=== PATIENT | male | born 1985 | race Caucasian/White ===

== ENCOUNTER 2016-09-05 10:15 | Emergency (ER) | payer SELFPAY ==
[~2016-09-05] VITALS: Ht 177.8 cm; Wt 100.0 kg
[2016-09-05 10:17] VITALS: BP 140/80; PULSE 87; RESP 24; TEMP 98.1; O2SAT 100
--- NOTE | 2016-09-05 10:43 | PD ---
HPI . Anxiety Chief Complaint: Anxiety Time Seen by Provider: 10:32 Travel History International Travel<30 days: No Contact w/Intl Traveler<30days: No Traveled to known affect area: No History of Present Illness HPI This patient presents with the chief complaint of stress and anxiety. He states that he has mental issues dating back to when he was a kid. He states that he used to be on multiple medications but worsening himself off of the medications by the time he was a young teenager. He states that he's been able to cope pretty well until recently. He states that his life has a lot of stress and that he is having a more and more difficult time coping with distress. He states that he has some anger issues. He states that he sometimes has trouble controlling his anger. He states that he has never hurt anyone and does not have any loss of hurting himself or anyone else. He states that he was at work today when he had an anxiety attack that was so severe that it caused carpopedal spasm followed by syncope. EMS was called and he was brought to the hospital. EMS was able to "talk him down" he is now much improved. The patient states that he is not at all interested in [place] [facility] [place] He is, however, interested in being referred to psychiatry as an outpatient. The patient denies any significant alcohol or drug abuse. He states that he occasionally drinks and occasionally uses cocaine but not regularly. PFSH Past Medical History Hx Anticoagulant Therapy: No Anxiety: Yes Depression: Yes Cardiovascular Problems: No Chemotherapy: No Cerebrovascular Accident: No Diabetes: No Diminished Hearing: No Inguinal Hernia: Yes (right) Respiratory: No Immunizations Current: Yes Tetanus Vaccination: < 5 Years Influenza Vaccination: Yes Social History Alcohol Use: Yes (beer, rare) Tobacco Use: Yes (1+ PPD) Substance Use: No Allergies-Medications (Allergen,Severity, Reaction): Uncoded Allergies: unknown antibiotic (Adverse Reaction, Unknown, 09/05/16) Reported Meds & Prescriptions Reported Meds & Active Scripts Active No Active Prescriptions or Reported Medications Review of Systems Except as stated in HPI: all other systems reviewed are Neg Psychiatric: Positive: Anxiety, No: Suicidal Ideations, Substance Abuse, Homicidal Ideation Physical Exam Narrative GENERAL: Awake and alert and in no acute distress. SKIN: Warm and dry. HEAD: Atraumatic. Normocephalic. EYES: Pupils equal and round. NECK: Trachea midline. CARDIOVASCULAR: Regular rate and rhythm. RESPIRATORY: No accessory muscle use. MUSCULOSKELETAL: No obvious deformities. No edema. NEUROLOGICAL: Awake and alert. No obvious cranial nerve deficits. Motor grossly within normal limits. Normal speech. PSYCHIATRIC: Appropriate mood and affect; insight and judgment normal. He makes good eye contact with the examiner. He is lucid. He does not seem to be responding to any internal stimuli. Data Data Last Documented VS Vital Signs Date Time Temp Pulse Resp B/P Pulse Ox O2 Delivery O2 Flow Rate FiO2 09/05/16 10:19 80 16 09/05/16 10:17 98.1 140/80 100 Orders Lorazepam (Ativan) (09/05/16 10:45) Haloperidol Inj (Haldol Inj) (09/05/16 11:15) Diphenhydramine Inj (Benadryl Inj) (09/05/16 11:15) MDM Medical Decision Making Medical Screen Exam Complete: Yes Emergency Medical Condition: Yes Differential Diagnosis My differential diagnosis anxiety includes but is not limited to generalized anxiety disorder, depression, psychoses, drug abuse, alcohol abuse Narrative Course Patient presents for anger management issues, stress and anxiety. He is not homicidal or suicidal. He is not psychotic. He was given a dose of Ativan here and will be referred to [facility] for outpatient treatment. Diagnosis Primary Impression: Anxiety hyperventilation Referrals: [facility] Patient Instructions: General Instructions, Stress (DC) Scripts No Active Prescriptions or Reported Meds Disposition: 01 DISCHARGE HOME Condition: Stable Nisha Cerda MD Sep 05, 2016 10:43
[2016-09-05] MEDS ORDERED: LORazepam 2 MG TAB PO ONE (10:45)
[2016-09-05] MEDS ORDERED: HALOPERIDOL LACTATE 5 MG/ML AMP IM ONE (11:15)
[2016-09-05] MEDS ORDERED: diphenhydrAMINE HCL 50 MG/ML VIAL IM ONE (11:15)
== END 2016-09-05 11:36 | disposition home or self-care (01) ==
LOC: PHED 10:15
DX: F41.9 Anxiety disorder, unspecified (principal); R06.4 Hyperventilation; F17.210 Nicotine dependence, cigarettes, uncomplicated
CPT/HCPCS: 99283